=== PATIENT | female | born 1975 | race Caucasian/White ===

== ENCOUNTER 2019-04-23 09:31 | Outpatient (RCR) | payer SELFPAY ==
[2018-07-02 10:50] VITALS: BMI 20.5
--- NOTE | 2019-08-18 10:36 | HP.PT.NRP ---
MATT TOLLIVER was seen in my office for initial evaluation on . The following Plan of Care was established for this patient: This patient was last seen in our office . Pertinent comments regarding their Physical therapy will appear below: Self Pay Dry Needle-d/c At this point I will be discontinuing this patient from physical therapy. I would be happy to see this patient again in the future if found appropriate by the physician. Thank you! DESIRE RezaT
== END 2019-04-23 19:00 | disposition home or self-care (01) ==
LOC: PT 09:31
PROVIDERS: Family Provider Student in an Organized Health Care Education/Training Program; PCP Student in an Organized Health Care Education/Training Program
DX: R69 Illness, unspecified (principal)

== ENCOUNTER 2022-06-18 10:30 | Outpatient (RCR) | payer BC, SELFPAY ==
--- NOTE | 2022-06-13 12:04 | HP.PTEVAL ---
Patient's Visit Information MATT TOLLIVER is a 47 year old F referred to Physical Therapy by Dr. Garth Kc DO with a diagnosis of Hip Flexor. 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 Backed off and she is still having a dull ache in the front of her hip. 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 She feels very in shape and strong and doesn't want to stop working out. She reports that its a dull achy- pain- its the hip flexion that bothers her. Wakes her up at night when she rolls over. Pain comes and goes and is movement dependent. Worst: 5/10 Best: 0/10. No pain radiates. She does have back issues- and has had N/T in her left leg as recent as this week. She wore heels and has increased her left foot and numbness. She has had had this on/off for the last few years- it just goes away. She feels the hip is staying the same- worse with exercises. 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 Walking does bother her- wearing Hoka's and orthotics. Hip was painful first then her left foot started to tingle. PMHx: none Meds: thyroid - Objective Posture: good throughout. Gait: no deviation noted. HR/TR: able. SLS: 30 sec without loss of balance. ROM: WFL with the exception of knee to chest- has full ROM but painful. Strength: Core: fair plus, Hip: 5/5, Knee: 5/5, Ankle: 5/.5. Flex: HS: moderate, Gastroc: moderate. Special Test: pelvic alignment: right ASIS superior to left, LLD: negative. Palpation: tender to Psoas, anterior hip flexor - Balance/Special Test Scores Lower Extremity Functional Score: 61 - Goals Goal 1:: Patient will be I with HEP and progression Goal Time Frame: 4-6 Weeks Goal 2:: Patient will report no pain with activity Goal Time Frame: 4-6 Weeks - Rehabilitation Potential Physical Therapy Diagnosis: Patient presents with pelvic mal alignment leading to increased pain with ADL's - Anticipated Interventions Patient/Client Instruction: Educate patient on: Benefits of Fitness Program Therapeutic Exercise to Include: Strength training, Endurance training, Balance training, Coordination, Agility training, Body mechanics, Postural training, Flexibilty training, Gait and locomotor training, Dynamic Lumbar Stabilization, Scapular Strength/Stabilization For the Purpose of:: To improve muscle performance and motor function Thank you for the opportunity to evaluate your patient. For Medicare and Medicare HMO plans, please review the plan of care and approve it. It will need to be FAXED BACK to us at [phone] for Medicare purposes. For Medicare only, by signing this I certify the plan of care. Please let me know if there are questions or concerns regarding this plan of care. Physician Signature: Date:
--- NOTE | 2022-10-22 11:40 | HP.PT.NRP ---
Patient Information Patient Information: MATT TOLLIVER was seen in my office for initial evaluation on 05/31/22. The following Plan of Care was established for this patient: POC Established Initial Frequency: 2x /Week Initial Duration: 4 Weeks Anticipated Interventions Patient/Client Instruction: Educate patient on: Benefits of Fitness Program Therapeutic Exercise to Include: Strength training, Endurance training, Balance training, Coordination, Agility training, Body mechanics, Postural training, Flexibilty training, Gait and locomotor training, Dynamic Lumbar Stabilization and Scapular Strength/Stabilization For the Purpose of:: To improve muscle performance and motor function Last Seen Last Seen: This patient was last seen in our office . Pertinent comments regarding their Physical therapy will appear below: Pt has not attended PT in over 8 weeks- appropriate to be d/c At this point I will be discontinuing this patient from physical therapy. I would be happy to see this patient again in the future if found appropriate by the physician. Thank you! Pgae Caballero, DPT Balance/Gait/Functional tests Balance/Special Test Scores Lower Extremity Functional Score: 61
== END 2022-06-18 19:00 | disposition home or self-care (01) ==
LOC: PT 10:30
PROVIDERS: PCP Student in an Organized Health Care Education/Training Program; Referring Provider Student in an Organized Health Care Education/Training Program; Visit Provider Student in an Organized Health Care Education/Training Program
DX: M25.559 Pain in unspecified hip (principal)
CPT/HCPCS: 97162; 97530

== ENCOUNTER 2024-06-18 14:30 | Outpatient (RCR) | payer BC, SELFPAY ==
--- NOTE | 2024-06-02 10:01 | HP.PTEVAL ---
Patient's Visit Information Visit Information Visit Information: MATT TOLLIVER is a 49 year old F referred to Physical Therapy by Dr. Rudolph Urban MD with a diagnosis of R shoulder strain. Date of Evaluation: 06/01/24 Physical Therapist: Mitul Brandt DPT Visit Plan Frequency: 2x /Week Duration: 6 Weeks Plan: 1) inferior glides with ROM progression, restore end range of motion 2) light strength progressing as tolerated of deltoid and RTC, and periscapular musculature 3) DN as needed Subjective Subjective: Pt. is here today for her initial evaluation with diagnosis of R shoulder strain. Pt. reports ~ 6 weeks ago she fell going down the stairs. She was holding something and did not brace her self and hit her R shoulder into the banister. Pt. reports no N/T in either UE. Pt does have increased pain with reaching abducted and with reaching behind her. Not as much pain with flexion or ER, but does have some soreness. She enjoys yoga, but reports having to modify her movements due to her R shoulder pain. She is unable to complete push ups or planks as well. She does have disrupted sleep as well. Pt. is hopeful to reduce her symptoms in order to get back to all recreational activities without limitations. Pain R anterior shoulder: Pain Intensity (Out of 10): 3 Pain Intensity Range: 1 and 7 Comment: anterior subacromial space Objective Objective: POSTURE: Pt. has fairly normal posture in stance/sitting. Pt. has normal shoulder heights. PALPATION: Pt. has tenderness at anterior shoulder, subacromial space and coracoid process. Not as much pain at bicipital groove. No posterior shoulder pain. NEURO: normal sensation and DTR of BUEs. ROM: PROM: flexion: 170 deg increase NW, abd 165deg increase NW, ER at 90deg of abd 90deg increase NW, IR at 90deg of abd 40deg increase NW. AROM: flexion 170deg painful arc noted, abd 160deg painful arc noted. functional ER C6 mild increase NW, IR L1 NE. MMT: L UE: 5/5 throughout without increase in symptoms R shoulder: flexion 4+/5 increase NW, abd 4/5 increase NW, ER 5-/5 increase NW, IR 5/5 NE, ext 5/5 NE. Special Tests R Shoulder Lift Off Test - Subscapular Tear: Negative R Shoulder Drop Sign - IS Test: Negative R Shoulder Empty Can - SS: Positive R Shoulder Belly Press - SupScap: Negative R Shoulder Neer - Impingement: Positive R Shoulder Cooper Wilder - Impingement: Positive R Shoulder Biceps Load Test - Labrum: Negative R Shoulder Speeds Test - Labrum/Biceps: Negative Balance/Special Test Scores Quick DASH Score: 36.3625 Goals Goal 1:: LTG: Pt. to be I with HEP. Goal Time Frame: 4-6 Weeks Goal 2:: STG: pt. to sleep throughout the night without increase in R shoulder pain Goal Time Frame: 2-4 Weeks Goal 3:: LTG: Pt. to have full R shoulder ROM without increase in symptoms. Goal Time Frame: 4-6 Weeks Goal 4:: LTG: Pt. to have symmetrical strength throughout B shoulders without increase in symptoms. Goal Time Frame: 4-6 Weeks Goal 5:: LTG: Pt to complete all yoga activities without increase in R shoulder pain. Goal Time Frame: 4-6 Weeks Rehabilitation Potential Physical Therapy Diagnosis: Pt. has signs and symptoms consistent with R shoulder strain. Pt. has some end range ROM loss with increased pain and pain with loading of her RTC. Symptoms due not suggest large RTC tear pathology, but unable to fully rule out partial tearing vs strain. I would suggest that she work on restoring her full motion pain free and ease into loading of her deltoid and RTC as tolerated. Rehabilitation Potential: Excellent Anticipated Interventions Patient/Client Instruction: Educate patient on: Condition, Plan of Care, Risk Factors and Benefits of Fitness Program For the Purpose of:: To foster healthy habits, To improve decision making, To facilitate caregiver knowledge, To improve self management, To prevent re-injury and To improve ability to perform tasks related to life management Therapeutic Exercise to Include: Strength training, Endurance training, Postural training, Flexibilty training, Passive ROM, Active ROM and Scapular Strength/Stabilization For the Purpose of:: To decrease pain, To decrease swelling/inflammation, To increase ROM, To improve nutrient delivery to tissue, To increase oxygenation perfusion, To improve muscle performance and motor function and To improve ability to perform ADL's Manual Therapy Techniques to Include: Mobilization, Functional dry needling and Soft tissue mobilization For the Purpose of:: To decrease pain, To decrease swelling/inflammation, To increase ROM, To improve nutrient delivery to tissue, To increase oxygenation perfusion and To improve muscle performance and motor function Text: Thank you for the opportunity to evaluate your patient. For Medicare and Medicare HMO plans, please review the plan of care and approve it. It will need to be FAXED BACK to us at [phone] for Medicare purposes. For Medicare only, by signing this I certify the plan of care. Please let me know if there are questions or concerns regarding this plan of care. Physician Signature: Date:
== END 2024-06-18 19:00 | disposition home or self-care (01) ==
LOC: PT 14:30
PROVIDERS: PCP Student in an Organized Health Care Education/Training Program; Referring Provider Orthopaedic Surgery; Visit Provider Orthopaedic Surgery
DX: S46.911D Strain of unspecified muscle, fascia and tendon at shoulder and upper arm level, right arm, subsequent encounter (principal)
CPT/HCPCS: 97161

== ENCOUNTER 2025-01-17 19:32 | Emergency (ER) | payer BC, SELFPAY ==
[2025-01-17 19:33] VITALS: BP 115/73; PULSE 113; RESP 17; TEMP 36.7; O2SAT 96; BMI 21.2
--- NOTE | 2025-01-17 21:20 | EDS_ITS ---
HPI HPI - GI History of Present Illness Chief Complaint: Nausea/Vomiting Informant: patient Abdominal Pain/Flank Pain Onset: Today Context: Sudden Onset Timing: Continuous Quality: Cramping Location: Diffuse Worsened by: Nothing Relieved by: - (Vomiting) Nausea/Vomiting/Emesis GI Symptom: Positive for Nausea and Vomiting Quality: Positive for Nonbilious; Negative for Blood streaks, Coffee ground or Hematemesis Diarrhea/Melena/Hematochezia GI Symptom: Negative for Diarrhea, Melena or Hematochezia Associated Symptoms Associated Symptoms: Negative for Dysuria, Frequency or Hematuria Narrative Narrative: Patient presents with nausea, vomiting, and abdominal pain that began tonight. Patient states she had 3 beers tonight on an empty stomach. Patient states that after that she ate some chili. Patient describes her pain as cramping. Patient states it is diffuse across her entire abdomen. Patient states he gets better after she vomits but then it comes back again. Patient denies any hematemesis or coffee-ground emesis. Patient states her emesis is undigested stomach contents. Patient denies any diarrhea, melena, or hematochezia. Patient denies any dysuria, frequency, or hematuria. [facility] Medical History Hyperthyroidism Osteopenia Home Medications ?Medication ?Instructions ?Recorded ?Last Taken ?Type levothyroxine 75 mcg tablet 75 mcg PO DAILY 07/02/18 U nknown History (Levoxyl) ondansetron 4 mg disintegrating 4 mg PO Q8H PRN PRN Na usea #10 tabs 01/17/25 Unknown Rx tablet Allergy/AdvReac Type Severity Reaction Status Date / Time No Known Allergies Allergy Verified 01/17/25 19:36 Family History Other Breast cancer Cancer Hypertension Melanoma Thyroid disorder Social History Smoking Status: Former smoker alcohol intake: current alcohol intake frequency: holidays/special occasions only substance use type: does not use what type of physical activity do you participate in: yoga and weight training frequency: 5-6 times per week ROS ROS ED Constitutional Constitutional ED: Denies chills or fever(s) Eyes Eyes: Denies blurry vision or change in vision ENT ENT ED: Denies rhinorrhea or sore throat Cardiovascular Cardiovascular: Denies chest pain or palpitations Respiratory/Chest Respiratory/Chest: Denies cough or dyspnea Gastrointestinal Gastrointestinal: Reports abdominal pain, nausea and vomiting Genitourinary Genitourinary ED: Denies dysuria or hematuria Musculoskeletal Musculoskeletal: Denies back pain or neck pain Integumentary Denies abscess or rash Neurologic Neurologic: Denies headache(s) or weakness Allergic/Immunologic Allergic/Immunologic ED: Denies mouth swelling or urticaria EXAM Physical Exam Const Vital Signs: 01/17/25 19:33 01/17/25 22:06 01/17/25 23:45 Temperature 98.1 F 98.1 F Temperature Source Temporal Pulse Rate 113 H 92 92 Respiratory Rate 17 16 16 Blood Pressure 115/73 119/65 119/65 Blood Pressure Mean 87 83 83 Pulse Ox 96 99 99 Oxygen Delivery Method Room Air Positive well nourished and well developed Constitutional Narrative: BMI is 21.2. General Appearance ED: well developed and NAD HEENT Reports moist mucous membranes Neck supple and no JVD Resp normal respiratory effort and clear to auscultation bilaterally Cardio regular rhythm Rate: tachycardic GI non-distended Palpation: soft and tender epigastric, LLQ, RLQ, LUQ, RUQ, periumbilical and suprapubic; Negative for guarding or rebound tenderness present Back/Spine no CVA tenderness Neuro CN's II-XII intact bilaterally, moves all extremities and no sensory deficits noted Sensorium / Orientation: alert Motor Exam: strength 5/5 throughout Psych mental status grossly normal MDM MDM MDM Narrative Medical decision making narrative: Differential diagnosis includes but is not limited to gastroenteritis, viral illness, dehydration, electrolyte abnormality, pancreatitis, and anxiety. CBC will be obtained to assess for leukocytosis and anemia. Comprehensive metabolic profile will be obtained to assess for electrolyte abnormality, renal function, and hepatic function. Serum hCG will be obtained to assess for . Lipase will be obtained to assess for pancreatitis. Alcohol level will be obtained to assess for alcohol intoxication. Lab Data Attestation: I reviewed the patient's lab results. Lab results narrative: CBC was reviewed. There is a slight leukocytosis of 12.4. The remainder is within normal limits. Comprehensive metabolic profile was reviewed and was essentially within normal limits. Lipase was reviewed and was normal at 25. Serum alcohol level was reviewed and was less than 10.1. Serum hCG was reviewed and was negative. Labs: Laboratory Results - last 24 hr 01/17/25 01/17/25 21:34 21:46 WBC 12.4 H RBC 4.34 Hgb 13.7 Hct 40.2 MCV 92.6 MCH 31.6 MCHC 34.1 RDW Std Deviation 45.2 H RDW Coeff of Brittni 13.2 Plt Count 252 MPV 10.0 Immature Gran % (Auto) 0.200 Neut % (Auto) 93.4 H Lymph % (Auto) 3.0 L Pender % (Auto) 3.0 Eos % (Auto) 0.2 Baso % (Auto) 0.2 Absolute Neuts (auto) 11.5 H Absolute Lymphs (auto) 0.37 L Nucleated RBC % 0 Sodium 139 Potassium 4.2 Chloride 102 Carbon Dioxide 24.1 Anion Gap 13 BUN 15 Creatinine 0.74 Estim Creat Clear Calc 89.43 Est GFR (MDRD) Non-Af 99 BUN/Creatinine Ratio 20.6 H Glucose 115 H Calcium 9.3 Total Bilirubin 0.60 AST 31 ALT 33 Alkaline Phosphatase 68 Total Protein 7.7 Albumin 4.8 Globulin 2.9 Albumin/Globulin Ratio 1.7 Lipase 25 Serum , Qual NEGATIVE Ethyl Alcohol < 10.1 Treatment and Re-Evaluation :: Patient was given IV fluids. Patient was ordered Reglan but she declined. Patient was given a dose of Tylenol. Patient was advised of her findings. Patient was instructed to start with sips of liquids and advance as tolerated. Patient was given a prescription for Zofran. Patient was instructed to follow- up with her primary care physician in 5 to 7 days. Patient understood and was agreeable with the plan. All questions were answered. Discharge Plan Triage Chief Complaint: Nausea/Vomiting ED Provider: Surinder Romo Dx/Rx/DC Orders Clinical Impression: Nausea and vomiting, Abdominal pain Instructions: ED Vomiting (Adult) Prescriptions: New ondansetron 4 mg tablet,disintegrating 4 mg PO Q8H PRN PRN (Reason: Nausea) Qty: 10 0RF No Action levothyroxine [Levoxyl] 75 mcg tablet 75 mcg PO DAILY Primary Care Provider: Garth Kc Referrals: Garth Kc, DO [Primary Care Provider, Medical] - 5-7 Days Print Language: Estonian Disposition Disposition: Home, Self Care Discharge Date/Time: 01/17/25 23:46
[2025-01-17] MEDS: 0.9% Normal Saline (1000mL) 1,000 ML 1000 ML IV (21:42)
[2025-01-17 21:50] LABS: Hematocrit 40.2 % (37-47); Hemoglobin 13.7 g/dL (12.0-15.0); Immature Granulocytes Count 0.030 X10^3/uL (0.0-0.0); Mean Corp Hgb Conc 34.1 g/dL (32-36); Mean Corpuscular Volume 92.6 fL (81-99); Mean Platelet Vol. 10.0 fl (6.2-12.0); NRBC Flagged by Analyzer 0 % (0-5); POSITIVE DIFFERENTIAL YES; Platelet Count 252 K/mm3 (150-450); RBC Distribution Width CV 13.2 % (11.6-14.6); RBC Distribution Width SD 45.2 fl (35.1-43.9); Red Blood Count 4.34 M/mm3 (4.2-5.4); White Blood Count 12.4 K/mm3 (4.4-11.0)
[2025-01-17 22:06] VITALS: BP 119/65; PULSE 92; RESP 16; O2SAT 99
[2025-01-17 22:24] LABS: AST(SGOT) 31 U/L (<=31); Alanine Aminotransfer ALT/SGPT 33 U/L (<=34); Albumin, Serum 4.8 g/dL (3.5-5.0); Alkaline Phosphatase 68 U/L (35-104); Anion Gap 13 (5-15); BUN 15 mg/dL (4-19); BUN/Creat Ratio 20.6 RATIO (10-20); Calcium,Total 9.3 mg/dL (7.6-11.0); Carbon Dioxide 24.1 mmol/L (21.0-32.0); Chloride 102 mmol/L (98-108); Estimated Creatinine Clearance 89.43 ml/min (50-250); Globulin 2.9 g/dL (2.2-4.2); Glucose 115 mg/dL (70-99); Lipase 25 U/L (13-75); Potassium 4.2 mmol/L (3.3-5.1)
[2025-01-17 22:32] LABS: Internal QC Validated? YES +Cl - CLEAR BKGD; Pregnancy, Serum, hCG Quali. NEGATIVE Negative
[2025-01-17 22:34] LABS: Alcohol, Blood (Medical)-Serum < 10.1 mg/dL (<=10.0); Record Kit Lot#, Serum Preg. 0000980607
[2025-01-17 23:45] VITALS: BP 119/65; PULSE 92; RESP 16; TEMP 36.7; O2SAT 99
== END 2025-01-17 23:46 | disposition home or self-care (01) ==
PROVIDERS: Emergency Provider Emergency Medicine; PCP Student in an Organized Health Care Education/Training Program; Visit Provider Emergency Medicine
DX: R11.2 Nausea with vomiting, unspecified (principal); Z87.891 Personal history of nicotine dependence; R10.9 Unspecified abdominal pain; D72.829 Elevated white blood cell count, unspecified
CPT/HCPCS: 80053; 82077; 83690; 84703; 85025; 96360; 99282; A4216